=== PATIENT | female | born 1945 | race Caucasian/White ===

== ENCOUNTER 2023-04-25 17:12 | Emergency (ER) | payer MEDICARE, BC, SELFPAY ==
[2023-04-25 17:28] VITALS: BP 177/79; PULSE 92; RESP 20; TEMP 36.8; O2SAT 100; BMI 26.5
--- NOTE | 2023-04-25 17:32 | CRLHL7_ITS ---
For Patients: As a result of the Cures Act, medical imaging exams and procedure reports are released immediately into your electronic medical record. You may view this report before your referring provider. If you have questions, please contact your health care provider. INDICATION: Fall TECHNIQUE: Three views left shoulder FINDINGS: Normal alignment. No acute fractures or acute osseous abnormalities. High-riding left humerus AC arthrosis. Glenohumeral articulation intact IMPRESSION: No acute fracture. Dictated by Candida Hinds MD @ 04/25/2023 6:38:51 PM (Electronically Signed)
--- NOTE | 2023-04-25 17:32 | CRLHL7_ITS ---
For Patients: As a result of the Cures Act, medical imaging exams and procedure reports are released immediately into your electronic medical record. You may view this report before your referring provider. If you have questions, please contact your health care provider. Indication: Fall onto left wrist Comparison: None available. Technique: AP, lateral, and oblique views left wrist were obtained. Findings: There is subtle trabecular compaction of the distal radius likely representing a nondisplaced impaction fracture. Degenerative changes of the radiocarpal joint are appreciated. There is mild carpal soft tissue swelling. Impression: Subtle trabecular compaction of the distal radius which likely represented nondisplaced impaction fracture. Mild soft tissue swelling. Dictated by Nelson Antonio MD @ 04/25/2023 6:43:37 PM (Electronically Signed)
--- NOTE | 2023-04-25 17:36 | ED_ITS ---
HPI - Fall General Time Seen by Provider: 17:37 Date Seen: 04/25/23 Chief Complaint: Fall/Minor Trauma Stated Complaint: Fell off ladder, L shoulder/wrist injuries Time Seen by Provider: 04/25/23 17:25 Source: patient and RN notes reviewed Mode of arrival: ambulatory Limitations: no limitations History of Present Illness HPI Narrative: Patient is a 77-year-old female coming into the ED of her own accord with complaint of left shoulder and left wrist pain. She was up on a short ladder, no higher than 4 ft, lost her balance and fell backwards, taking most of the impact on her left shoulder and arm. She does feel numbness tingling in the left hand but this is her baseline, has underlying multiple sclerosis. She is not having any difficulty breathing, no internal chest pain, no abdominal pain. She did not hit her head, no neck or back pain. She has her [id number] mother in the car, she did not want to come in. 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 Related Data Allergies Allergy/AdvReac Type Severity Reaction Status Date / Time contrast dye AdvReac Severe Anaphylaxis Uncoded 04/25/23 17:32 Review of Systems Status of ROS: Reports: 6 or more systems reviewed and unremarkable except as noted in History and below PFSH PFS Social History Smoking Status: Never smoker How often do you have a drink containing alcohol: never AUDIT-C Alcohol total score: 0 Non-prescribed substance use: denies use Exam Const: Vital Signs, click to edit/add: Vital Signs - 24 hr 04/25/23 17:28 Temperature 98.2 F Pulse Rate [Right Pulse Oximeter] 92 Respiratory Rate 20 Blood Pressure [Ri ght Upper Arm] 177/79 H Pulse Oximetry 100 Oxygen Delivery Me thod Room Air 77-year-old female is alert, interactive , seems uncomfortable, is holding her left arm next to her body, flexed at the elbow with arm across her chest, a pplying ice over the wrist area. Scalp/head are atraumatic, face atraumatic, able to speak in complete sentences. Sclera clear, extraocular muscles intact, pupils equal round reactive, conjugate gaze. Speech is normal, able to speak in complete sentences. No midline neck or back tenderness. No visible traumatic changes to the chest wall or back. Lungs are clear, good air entry, no wheezing or crackles. No tenderness over her clavicles. Does have tenderness over the upper humerus but I do not feel a dislocation of the shoulder on my examination. Left elbow is nontender on palpation but as you move down her arm, has pain generally over the distal wrist area. The wrist is cool as she has been applying ice, do still feel a good pulse. She is normal cap refill in her fingers, does feel numbness and tingling but this is reportedly her baseline from her MS. CV regular rate and rhythm, no murmur, normal S1 and S2. Abdomen is soft, non distended or tender. Ambulatory in the ED, no complaints of any right arm or lower extremity symptoms. Course Course ED Course: X-ray is already here, will start with left shoulder and left wrist imaging. Need to rule out underlying fractures. Consider further imaging or other interventions based on these results and her clinical picture as she is here. Reevaluation(s) Time of Reevaluation #1: 19:25 Reevaluation #1: Reviewed with patient that her shoulder x-ray is negative. Did offer CT of her shoulder she is having significant pain. We did discuss the possibility of possible rotator cuff pathology from the fall. I cannot do an MRI at this time. Her shoulder is actually painful, have recommended the CT but she will not wait to have this done. She feels better in the sling. Did review that her wrist is fractured. Does not need any reduction, likely will be non operative. We will place a short-arm splint at this time. Vital Signs Vital signs: Initial Vital Signs Temperature 98.2 F 04/25/23 17:28 Temperature Source Temporal Artery Scan 04/25/23 17:28 Pulse Rate 92 04/25/23 17:28 Pulse Rhythm Regular 04/25/23 17:28 Pulse Strength 3+ Normal 04/25/23 17:28 Respiratory Rate 20 04/25/23 17:28 Blood Pressure 177/79 H 04/25/23 17:28 Blood Pressure Mean 111 H 04/25/23 17:28 Blood Pressure Position Sitting 04/25/23 17:28 Pulse Oximetry 100 04/25/23 17:28 Oxygen Delivery Method Room Air 04/25/23 17:28 Vital Signs Temperature 98.2 F 04/25/23 17:28 Pulse Rate 92 04/25/23 17:28 Respiratory Rate 20 10/08/23 17:28 Blood Pressure 177/79 H 04/25/23 17:28 Pulse Oximetry 100 04/25/23 17:28 Oxygen Delivery Method Room Air 04/25/23 17:28 Temperature 98.2 F 04/25/23 17:28 Pulse Rate 92 04/25/23 17:28 Respiratory Rate 20 04/25/23 17:28 Blood Pressure 177/79 H 04/25/23 17:28 Pulse Oximetry 100 04/25/23 17:28 Oxygen Delivery Method Room Air 04/25/23 17:28 Discharge Plan Discharge Clinical Impression: Fall, Fracture of left wrist, Acute pain of left shoulder Patient Disposition: Home, Self-Care Condition: Stable Instructions: Wrist Fracture in Adults (ED), Shoulder Pain (ED) Additional Instructions: Use ice on your shoulder and over the left wrist to help decrease pain and swelling. The splint material does need to stay dry on the wrist. Use sling for comfort. May want to place some pillows behind your left shoulder, try to sleep a bit more elevated for the time being. Tylenol per bottle directions. If your doctor allows you or states it is okay, can add in some ibuprofen. Please check with your primary care provider prior to using ibuprofen. Will need a follow-up for the wrist in about 7-10 days, contact the orthopedic clinic at [phone]. Otherwise, if you are not improving as far as her left shoulder, really do need further imaging done. There could be an occult fracture of the shoulder that was not seen on x-ray images, could be rotator cuff injury from the fall. More advanced imaging would need to be done if you are having ongoing symptoms of your shoulder. Activity Level: Activity as Tolerated Discharge Diet: Regular Stand Alone [facility] Info Instructions Procedures Orthopedic Splinting/Casting Injury #1: Side: left Upper Extremity Injury Location: wrist Upper extremity immobilizer: volar splint (Use Ortho Glass to do a dorsal- volar splint) Applied by clinician: / Conclusion: patient tolerated procedure
== END 2023-04-25 19:38 | disposition home or self-care (01) ==
PROVIDERS: Emergency Provider Family Medicine; PCP Surgery
DX: S52.502A Unspecified fracture of the lower end of left radius, initial encounter for closed fracture (principal); M25.512 Pain in left shoulder; W11.XXXA Fall on and from ladder, initial encounter
CPT/HCPCS: 29125; 73030; 73110; 99283; 99284

== ENCOUNTER 2023-05-15 17:17 | Emergency (ER) | payer MEDICARE, BC, SELFPAY ==
[2023-05-15 18:11] VITALS: BP 161/84; PULSE 69; RESP 16; TEMP 36.5; O2SAT 98; BMI 23.4
--- NOTE | 2023-05-15 18:20 | ED.GENADULT ---
HPI - General Adult General Date Seen: 05/15/23 Chief complaint: Extremity Pain/Injury, Upper Stated complaint: Rash/pain L arm Time Seen by Provider: 05/15/23 18:19 History of Present Illness HPI narrative: This is a pleasant 77-year-old female with a history of multiple sclerosis as well as recent fall with wrist fracture and rotator cuff tear. She was seen here in the ER and splinted and then had follow-up visit with Orthopedics and was resplinted for her wrist fracture. Two days ago, on she began to notice a painful, itchy vesicular rash affecting her left hand. She now has small erythematous macules with blisters on the hand including the thenar eminence, index finger, dorsum of the index finger, radial aspect of her forearm, on the lateral aspect of her distal humerus. She consulted a 1 of her friends was a retired physician and was told she probably had shingles. She came to the ER desiring re-evaluation and if it is shingles treatment with antivirals. She also has a history of MS but is not currently on any immune therapy. Related Data Home Medications Medication Instructions Recorded Confirmed levothyroxine 75 mcg tablet 75 mcg PO DAILY 05/04/23 05/04/23 Previous Rx's Medication Instructions Recorded valacyclovir 1 gram tablet 1,000 mg PO TID #21 tabs 05/15/23 (Valtrex) Allergies Allergy/AdvReac Type Severity Reaction Status Date / Time penicillin V Allergy Severe Verified 05/04/23 13:20 escitalopram Allergy Intermediate Rash Verified 05/04/23 13:20 Iodinated Contrast Media Allergy Anaphylaxis Verified 05/04/23 13:20 [facility] Medical History (Updated 05/15/23 @ 18:41 by Tc Radford MD) Multiple sclerosis ?G35 - Multiple sclerosis (ICD-10) Need for prophylactic vaccination and inoculation against rabies ?Z23 - Encounter for immunization (ICD-10) 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 Alert. Conversant. Non toxic. HENT: Head: Atraumatic. Nose: Nose normal. Mouth/Throat: Oral mucosa is clear and moist. Eyes: Conjunctivae normal. EOM normal. Pupils equal, round, and reactive to light. No scleral icterus. Neck: Normal range of motion. Neck supple. No tracheal deviation present. Cardiovascular: Skin pink, warm, well perfused with normal cap refill. Pulmonary/Chest: Effort normal. No stridor. No respiratory distress. Musculoskeletal: RUE: Normal range of motion. No tenderness. No deformity LUE: Normal range of motion in shoulder and elbow. Splint on left forearm.. No tenderness. No deformity RLE: Normal range of motion. No edema. No tenderness. No deformity LLE: Normal range of motion. No edema. No tenderness. No deformity Lymph: No cervical adenopathy. Neurological: Alert and oriented to person, place, and time. Normal strength. CN II-VII intact. No sensory deficit. GCS eye subscore is 4. GCS verbal subscore is 5. GCS motor subscore is 6. Normal coordination Skin: She has a fascicular slightly erythematous rash affecting her left hand, forearm, and left distal upper arm suggestive of shingles. It appears to affect the left C6 dermatome. Skin is warm and dry. No rash noted. No pallor. Normal capillary refill. Psychiatric: Normal mood. Normal affect. Const: Vital Signs, click to edit/add: Vital Signs - 24 hr 05/15/23 18:11 Temperature 97.7 F Pulse Rate [Pulse Oximeter] 69 Respiratory Rate 16 Blood Pressure [Ri ght Upper Arm] 161/84 H Pulse Oximetry 98 Oxygen Delivery Me thod Room Air Course Vital Signs Vital signs: Initial Vital Signs Temperature 97.7 F 05/15/23 18:11 Temperature Source Temporal Artery Scan 05/15/23 18:11 Pulse Rate 69 05/15/23 18:11 Respiratory Rate 16 05/15/23 18:11 Blood Pressure 161/84 H 05/15/23 18:11 Blood Pressure Mean 109 H 05/15/23 18:11 Pulse Oximetry 98 05/15/23 18:11 Oxygen Delivery Method Room Air 05/15/23 18:11 Vital Signs Temperature 97.7 F 05/15/23 18:11 Pulse Rate 69 05/15/23 18:11 Respiratory Rate 16 05/15/23 18:11 Blood Pressure 161/84 H 05/15/23 18:11 Pulse Oximetry 98 05/15/23 18:11 Oxygen Delivery Method Room Air 05/15/23 18:11 Temperature 97.7 F 05/15/23 18:11 Pulse Rate 69 05/15/23 18:11 Respiratory Rate 16 05/15/23 18:11 Blood Pressure 161/84 H 05/15/23 18:11 Pulse Oximetry 98 05/15/23 18:11 Oxygen Delivery Method Room Air 05/15/23 18:11 Medical Decision Making MDM Narrative Medical decision making narrative: MDM This patient presents for evaluation of pain and rash on her left hand and forearm. This is consistent clinically with herpes zoster, involving the left C6 dermatome. Will start valacyclovir for this and pain medicine as noted above. No signs at this point of disseminated zoster nor V1/eye involvement. Patient has a history of MS but is not currently immunocompromised and I see no signs of systemic illness that might have lead to this. She did recently fracture left forearm and I wonder if that injury might have been the provoking factor that triggered the shingles. I don't think lab work to look for things like HIV or leukemia is indicated. See primary care doctor in follow up for recheck and refill of pain medicine if needed. Discharge Plan Discharge Clinical Impression: Shingles Patient Disposition: Home, Self-Care Condition: Stable Instructions: Shingles (ED) Additional Instructions: As we discussed, please use the antiviral still try to get this shingles to heal up more quickly. See your doctor right away or come back to the ER immediately if you have spreading rash, high fever, worsening pain, or if you have blisters affecting other parts of your body Prescriptions: New valacyclovir [Valtrex] 1 gram tablet 1,000 mg PO TID Qty: 21 0RF No Action levothyroxine 75 mcg tablet 75 mcg PO DAILY Follow Up/Referrals: Isaac Khan MD [Primary Care Provider] - Stand Alone Forms: [employer] Info Instructions
[2023-05-15] MEDS: VALACYCLOVIR HCL 500 MG TABLET 1000 MG PO (19:16)
== END 2023-05-15 20:37 | disposition home or self-care (01) ==
LOC: ED 18:49
PROVIDERS: Emergency Provider Emergency Medicine; PCP Surgery
DX: B02.9 Zoster without complications (principal)
CPT/HCPCS: 99283; A9270

== ENCOUNTER 2023-05-16 09:11 | Emergency (ER) | payer MEDICARE, BC, SELFPAY ==
[2023-05-16 09:22] VITALS: BP 152/72; PULSE 60; RESP 17; TEMP 36.3; O2SAT 99; BMI 23.4
--- NOTE | 2023-05-16 09:49 | ED.GENADULT ---
HPI - General Adult General Chief complaint: Extremity Pain/Injury, Upper Stated complaint: Possible infection in arm/hand Time Seen by Provider: 05/16/23 09:17 Source: patient Mode of arrival: ambulatory Limitations: no limitations History of Present Illness HPI narrative: 77-year-old female presenting today with concerns about arm pain. She was seen in the ER yesterday and diagnosed with shingles. Today she states that her fingers were swollen and she had increased pain along her arm, she is wondering if she has an infection. She denies any new systemic symptoms. States that she is unsure if she has new vesicles. Related Data Home Medications Medication Instructions Recorded Confirmed levothyroxine 75 mcg tablet 75 mcg PO DAILY 05/04/23 05/04/23 Previous Rx's Medication Instructions Recorded valacyclovir 1 gram tablet 1,000 mg PO TID #21 tabs 05/15/23 (Valtrex) Allergies Allergy/AdvReac Type Severity Reaction Status Date / Time penicillin V Allergy Severe Verified 05/04/23 13:20 escitalopram Allergy Intermediate Rash Verified 05/04/23 13:20 Iodinated Contrast Media Allergy Anaphylaxis Verified 05/04/23 13:20 Review of Systems Status of ROS: Reports: 10 or more systems reviewed and unremarkable except as noted in History and below [facility] Medical History Multiple sclerosis ?G35 - Multiple sclerosis (ICD-10) Need for prophylactic vaccination and inoculation against rabies ?Z23 - Encounter for immunization (ICD-10) 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 Alert and oriented. Answers questions appropriately. Mood and affect are appropriate. Thoughts are goal oriented and rational. No tangential or magical thinking noted. Patient speaks in full sentences without needing to catch her breath. HEENT: Normocephalic atraumatic. Pupils are equally round reactive to light. Extraocular muscles are intact. Conjunctivae are moist without any icterus noted. Moist mucous membranes. Skin: Patient has vesicles of the left forearm and thumb 2nd and 3rd digits. Vesicles are lateral to the midline of the palm do not cross the midline. She has some vesicles going up the lower arm into the upper arm. No evidence of superimposed infection. Const: Vital Signs, click to edit/add: Vital Signs - 24 hr 05/16/23 09:22 Temperature 97.4 F L Pulse Rate [Pulse Oximeter] 60 Respiratory Rate 17 Blood Pressure [Ri t Upper Arm] 152/72 H Pulse Oximetry 99 Oxygen Delivery Me thod Room Air Course Course ED Course: Patient is a fracture of that arm, there for her splint and dressings were all removed arm was evaluated and the arm was resplinted and dressed. Vital Signs Vital signs: Initial Vital Signs Temperature 97.4 F L 05/16/23 09:22 Temperature Source Temporal Artery Scan 05/16/23 09:22 Pulse Rate 60 05/16/23 09:22 Respiratory Rate 17 05/16/23 09:22 Blood Pressure 152/72 H 05/16/23 09:22 Blood Pressure Mean 98 05/16/23 09:22 Pulse Oximetry 99 05/16/23 09:22 Oxygen Delivery Method Room Air 05/16/23 09:22 Vital Signs Temperature 97.4 F L 05/16/23 09:22 Pulse Rate 60 05/16/23 09:22 Respiratory Rate 17 05/16/23 09:22 Blood Pressure 152/72 H 05/16/23 09:22 Pulse Oximetry 99 05/16/23 09:22 Oxygen Delivery Method Room Air 05/16/23 09:22 Temperature 97.4 F L 05/16/23 09:22 Pulse Rate 60 05/16/23 09:22 Respiratory Rate 17 05/16/23 09:22 Blood Pressure 152/72 H 05/16/23 09:22 Pulse Oximetry 99 05/16/23 09:22 Oxygen Delivery Method Room Air 05/16/23 09:22 Medical Decision Making MDM Narrative Medical decision making narrative: 77-year-old female with shingles. We discussed this is the normal course. We discussed what to expect over the next several days. Patient does not wish to have any stronger pain medications at this time. Discharge Plan Discharge Clinical Impression: Shingles Patient Disposition: Home, Self-Care Condition: Stable Additional Instructions: You have classic appearing shingles. There is no evidence of other infection at this time. For itching you can try calamine lotion or Benadryl cream- both can be purchased [id number]. Continue your antiviral medications. Follow-up with your doctor as needed. Prescriptions: No Action levothyroxine 75 mcg tablet 75 mcg PO DAILY valacyclovir [Valtrex] 1 gram tablet 1,000 mg PO TID Qty: 21 0RF Follow Up/Referrals: Isaac Khan MD [Primary Care Provider] - Stand Alone Forms: [employer] Info Instructions
== END 2023-05-16 10:06 | disposition home or self-care (01) ==
PROVIDERS: Emergency Provider Family Medicine; PCP Surgery
DX: B02.9 Zoster without complications (principal)
CPT/HCPCS: 99283; 99284

== ENCOUNTER 2023-09-08 14:30 | Outpatient (RCR) | payer MEDICARE, BC, SELFPAY | END 2023-11-24 09:37 | disposition home or self-care (01) | PROVIDERS: PCP Surgery; Visit Provider Physician Assistant Surgical | DX: S62.102A Fracture of unspecified carpal bone, left wrist, initial encounter for closed fracture (principal); Z51.89 Encounter for other specified aftercare | CPT/HCPCS: 97110; 97140; 97165; X5282 ==

== ENCOUNTER 2024-01-24 12:30 | Outpatient (RCR) | payer MEDICARE, BC, SELFPAY | END 2024-05-23 23:59 | disposition home or self-care (01) | PROVIDERS: PCP Surgery; Visit Provider Surgery | DX: S62.102G Fracture of unspecified carpal bone, left wrist, subsequent encounter for fracture with delayed healing (principal); M25.532 Pain in left wrist; Z51.89 Encounter for other specified aftercare | CPT/HCPCS: 97035; 97110; 97140; 97165; 97535; X5282 ==

== ENCOUNTER 2024-02-12 15:43 | Emergency (ER) | payer MEDICARE, BC, SELFPAY ==
[2024-02-12 15:56] VITALS: BP 145/79; PULSE 60; RESP 18; TEMP 36.4; O2SAT 95; BMI 22.3
--- NOTE | 2024-02-12 16:21 | ED_ITS ---
HPI - General Adult General Date Seen: 02/12/24 Chief complaint: Weakness Stated complaint: Covid+, aching, fever Time Seen by Provider: 02/12/24 16:19 History of Present Illness HPI narrative: [age] year old female presents to the ER today with her [id number] mother. The patient lives at home with her mother and other family members. Her brother, who lives in [place], recently traveled to visit them. He did not know he was sick at the time he traveled but after arriving developed URI symptoms and subsequently tested positive for COVID. Since then the patient's niece also tested positive for COVID. Two days ago her sister tested positive for COVID. She developed symptoms yesterday of fever and chills, body aches, fatigue, cough. She is positive for coronavirus (tested yesterday). She is feeling dizziness, weakness, and has body aches. She had a fever yesterday. Today her mother also tested positive for COVID. She presents to the ER today with concern for early COVID and wants to get started on Paxlovid. She has had the initial series of COVID vaccines and had a booster last year. Risk factors for severe illness would include age greater than 65, history of MS Related Data Home Medications ?Medication ?Instructions ?Recorded ?Confirmed levothyroxine 75 mcg tablet 75 mcg PO DAILY 05/04/23 02/12/24 cholecalciferol (vitamin D3) 25 25 mcg PO QDAY 10/26/23 02/12/24 mcg (1,000 unit) capsule (Vitamin D3) Previous Rx's ?Medication ?Instructions ?Recorded nirmatrelvir 300 mg (150 mg See Rx Instructions PO .COMPLEX 02/12/24 x2)-ritonavir 100 mg tablet,dose #30 ea pack (Paxlovid) nirmatrelvir 300 mg (150 mg See Rx Instructions PO .COMPLEX 02/12/24 x2)-ritonavir 100 mg tablet,dose #30 ea pack (Paxlovid) Allergies Allergy/AdvReac Type Severity Reaction Status Date / Time penicillin V Allergy Severe Verified 02/12/24 16:01 escitalopram Allergy Intermediate Rash Verified 02/12/24 16:01 Iodinated Contrast Media Allergy Anaphylaxis Verified 02/12/24 16:01 [facility] Medical History Multiple sclerosis ?G35 - Multiple sclerosis (ICD-10) Need for prophylactic vaccination and inoculation against rabies ?Z23 - Encounter for immunization (ICD-10) 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, unspecified lower limb (ICD-10) DDD (degenerative disc disease) Family History Daughter Lupus Sister Diabetes Mother Endometrial cancer Social History (Reviewed 10/26/23 @ 14:53 by Stacie Almanza ~ [facility]) Smoking Status: Never smoker Do you use any of these nicotine containing products: None How often do you have a drink containing alcohol: never How often do you have six or more drinks on one occasion: Never AUDIT-C Alcohol total score: 0 Non-prescribed substance use: denies use Exam Narrative: Exam Narrative: Constitutional: Appears well-developed and well-nourished. Alert. Conversant. Non toxic. Very polite. HENT: Head: Atraumatic. Nose: Nose normal. Mouth/Throat: Oral mucosa is clear and moist. no trismus. Wearing face mask during exam. No pharyngeal exam performed. She does not have a sore throat. Eyes: Conjunctivae normal. EOM normal. Pupils equal, round, and reactive to light. No scleral icterus. Neck: Normal range of motion. Neck supple. No tracheal deviation present. No JVD Cardiovascular: Normal rate, regular rhythm. No gallop. No friction rub. No murmur heard. Pulmonary/Chest: Effort normal. No stridor. No respiratory distress. No wheezes. No rales. No rhonchi . No tenderness. Musculoskeletal: RUE: Normal range of motion. No tenderness. No deformity LUE: Normal range of motion. No tenderness. No deformity RLE: Normal range of motion. No edema. No tenderness. No deformity LLE: Normal range of motion. No edema. No tenderness. No deformity Neurological: Alert and oriented to person, place, and time. Normal strength. CN II-VII intact. No sensory deficit. GCS eye subscore is 4. GCS verbal subscore is 5. GCS motor subscore is 6. Normal coordination Skin: Skin is warm and dry. No rash noted. No pallor. Normal capillary refill. Psychiatric: Normal mood. Normal affect. Const: Vital Signs, click to edit/add: Vital Signs - 24 hr 02/12/24 15:56 Temperature 97.5 F L Pulse Rate [Right Pulse Oximeter] 60 Respiratory Rate 18 Blood Pressure [Ri ght Upper Arm] 145/79 H Pulse Oximetry 95 Oxygen Delivery Me thod Room Air Course Vital Signs Vital signs: Initial Vital Signs Temperature 97.5 F L 02/12/24 15:56 Temperature Source Temporal Artery Scan 02/12/24 15:56 Pulse Rate 60 02/12/24 15:56 Pulse Rhythm Regular 02/12/24 15:56 Respiratory Rate 18 02/12/24 15:56 Blood Pressure 145/79 H 02/12/24 15:56 Blood Pressure Mean 101 02/12/24 15:56 Blood Pressure Position Sitting 02/12/24 15:56 Pulse Oximetry 95 02/12/24 15:56 Oxygen Delivery Method Room Air 02/12/24 15:56 Vital Signs Temperature 97.5 F L 02/12/24 15:56 Pulse Rate 60 02/12/24 15:56 Respiratory Rate 18 02/12/24 15:56 Blood Pressure 145/79 H 02/12/24 15:56 Pulse Oximetry 95 02/12/24 15:56 Oxygen Delivery Method Room Air 02/12/24 15:56 Temperature 97.5 F L 02/12/24 15:56 Pulse Rate 60 02/12/24 15:56 Respiratory Rate 18 02/12/24 15:56 Blood Pressure 145/79 H 02/12/24 15:56 Pulse Oximetry 95 02/12/24 15:56 Oxygen Delivery Method Room Air 02/12/24 15:56 Medical Decision Making MDM Narrative Medical decision making narrative: This patient presents for evaluation of, fatigue, body aches, low-grade fever with positive home coronavirus test. She has known exposure to family members with COVID. She is positive for COVID and symptoms are consistent with an upper respiratory tract infection. There is no signs at this point of serious bacterial infection such as OM, RPA, epiglottitis, [employer]CHING [employer] O[employer], strep pharyngitis, pneumonia, sinusitis, meningitis, bacteremia, serious bacterial infection. Given clear lungs, fever curve, no hypoxia and no respiratory distress I do not feel a CXR is indicated at this point as the probability of bacterial pneumonia is very unlikely. There are no gastrointestinal symptoms at this point and no signs of dehydration. She has a good appetite. Given age and MS she does have risk for developing serious illness. I do think she is a good candidate for Paxlovid. She is on day 2 of coronavirus. GFR is normal. CBC reassuring. Prescription for Paxlovid sent to her pharmacy (initially to [facility], but they were closed. Subsequently to [facility]) . discussed the risk of worsening illness and the potential for developing hypoxia or symptoms requiring hospitalization.. Close followup with primary care physician is indicated. Return to ED for high fever, worsening shortness of breath, low oxygen levels, weakness, dehydration, protracted vomiting, confusion, or other worsening. Lab Data Labs: Lab Results 02/12/24 Range/Units 17:29 WBC 4.80 (4.50-11.00) K/uL RBC 4.51 (4.00-5.20) m/uL Hgb 13.7 (12.0-16.0) gm/dL Hct 42.9 (33.0-51.0) % MCV 95 (80-100) fL MCH 30 (26-34) pg MCHC 32 (32-36) gm/dL RDW Coeff of Man 13.6 (11.5-15.5) % Plt Count 215 (140-440) K/uL Neut % (Auto) 51.9 (42.0-72.0) % Lymph % (Auto) 32.7 (20-44) % Schuyler % (Auto) 14.4 H (0.0-11.0) % Eos % (Auto) 0.2 (0.0-7.0) % Baso % (Auto) 0.6 (0.0-3.0) % Neut # (Auto) 2.49 (1.7-7.0) K/uL Lymph # (Auto) 1.57 (0.90-2.90) K/uL Schuyler # (Auto) 0.70 (0.00-0.90) K/UL Eos # (Auto) 0.01 (0.00-0.50) K/uL Baso # (Auto) 0.03 (0.00-0.30) K/uL Abs Immat Gran (auto) 0.01 (0.00-0.30) K/uL Imm/Tot Granulo (auto) 0.2 % Sodium 137 (135-149) mmol/L Potassium 3.8 (3.6-5.1) mmol/L Chloride 103 (96-114) mmol/L Carbon Dioxide 26 (20-32) mmol/L Anion Gap 8 (7-15) mEq/L BUN 15 (7-30) mg/dL Creatinine 0.6 (0.5-1.5) mg/dL Estimated Creat Clear 37.26 Estimated GFR 92 ml/min Glucose 83 (60-115) mg/dL Calcium 9.0 (8.4-10.6) mg/dL Discharge Plan Discharge Clinical Impression: COVID-19 Patient Disposition: Home, Self-Care Condition: Stable Instructions: COVID-19 (Coronavirus Disease 2019) (ED), COVID-19 and Chronic Health Conditions (ED) Prescriptions: New Paxlovid 300 mg (150 mg x 2)-100 mg tablets,dose pack See Rx Instructions .ROUTE .COMPLEX Qty: 30 0RF Rx Instructions: take TWO 150 mg tablets of nirmatrelvir with ONE 100 mg tablet of ritonavir twice daily for 5 days Paxlovid 300 mg (150 mg x 2)-100 mg tablets,dose pack See Rx Instructions .ROUTE .COMPLEX Qty: 30 0RF Rx Instructions: take TWO 150 mg tablets of nirmatrelvir with ONE 100 mg tablet of ritonavir twice daily for 5 days No Action cholecalciferol (vitamin D3) [Vitamin D3] 25 mcg (1,000 unit) capsule 25 mcg PO QDAY levothyroxine 75 mcg tablet 75 mcg PO DAILY Follow Up/Referrals: Isaac Khan MD [Primary Care Provider] - Stand Alone [facility]: [facility]
[2024-02-12 18:20] LABS: Basophils Absolute Auto 0.03 K/uL (0.00-0.30); Basophils Percent Auto 0.6 % (0.0-3.0); Eosinophils Absolute Auto 0.01 K/uL (0.00-0.50); Eosinophils Percent Auto 0.2 % (0.0-7.0); Hematocrit 42.9 % (33.0-51.0); Hemoglobin* 13.7 gm/dL (12.0-16.0); Immature Granulocytes Abs Auto 0.01 K/uL (0.00-0.30); Immature Granulocytes Pct Auto 0.2 %; Lymphocytes Absolute Auto 1.57 K/uL (0.90-2.90); Lymphocytes Percent Auto 32.7 % (20-44); Mean Corpuscular HGB Conc 32 gm/dL (32-36); Mean Corpuscular Hemoglobin 30 pg (26-34); Mean Corpuscular Volume 95 fL (80-100); Monocytes Percent Auto 14.4 % (0.0-11.0); Neutrophils Absolute Auto 2.49 K/uL (1.7-7.0); Neutrophils Percent Auto 51.9 % (42.0-72.0); Platelet Count* 215 K/uL (140-440); RDW Coefficient of Variation % 13.6 % (11.5-15.5); Red Blood Count 4.51 m/uL (4.00-5.20)
[2024-02-12 18:29] LABS: Slide Review Reflex No
[2024-02-12 18:32] LABS: Chloride* 103 mmol/L (96-114); Sodium* 137 mmol/L (135-149)
[2024-02-12 18:33] LABS: Potassium* 3.8 mmol/L (3.6-5.1)
[2024-02-12 18:35] LABS: Anion Gap 8 mEq/L (7-15); Carbon Dioxide* 26 mmol/L (20-32); Creatinine* 0.6 mg/dL (0.5-1.5); Est. Creatinine Clearance* 37.26; Estimated Glomerular Filt Rate 92 ml/min
[2024-02-12 18:36] LABS: Blood Urea Nitrogen* 15 mg/dL (7-30); Glucose* 83 mg/dL (60-115)
== END 2024-02-12 19:02 | disposition home or self-care (01) ==
LOC: ED 18:50
PROVIDERS: Emergency Provider Emergency Medicine; PCP Surgery
DX: U07.1 COVID-19 (principal)
CPT/HCPCS: 36415; 80048; 85025; 99282; 99283

== ENCOUNTER 2025-04-15 21:01 | Emergency (ER) | payer MEDICARE, BC, SELFPAY ==
--- OUTSIDE RECORDS SUMMARY | 2025-04-15 21:02 | XMS_ITS | Clinical Summary ---
Author Organization [facility] Address [address] [place] [address] Care Team Providers Care Oceanologist Name Role Phone Juaquin Hein MB Unavailable [phone] Isaac Khan MD Primary Care Provider [phone] Allergies Active Allergy Reactions Criticality Noted Date Comments Codeine Other - Describe In Comment Field 07/28/2007 drugged feeling Iodinated Contrast Media 07/28/2007 Escitalopram Rash 07/28/2007 Penicillins Hives 07/28/2007 Medications desonide 0.05% (TRIDESILON 0.05% CREAM) 0.05 % creamIndications :Dermatitis Apply topically to affected area(s) 2 times daily. 15 g 2 1 Active cholecalciferol, Vitamin D3, (VITAMIN D3) 1,000 unit tablet Take 1 Tablet (1,000 units) by mouth once daily. 4 Active polyethylene glycol-electroly te (GOLYTELY) 236-22.74-6.74 -5.86 gram suspensionIndica tions:Encounter for screening colonoscopy Drink 2 liters the day before the procedure and 2 liters 6 hours prior to procedure. 4000 mL 4 Active levothyroxine (SYNTHROID) 75 mcg tabletIndication s:Hypothyroidism , unspecified type TAKE ONE TABLET BY MOUTH ONCE EVERY DAY . 90 Tablet 5 Active Active Problems Problem Noted Date Diagnosed Date Ennis's neuroma 04/20/2014 DDD (degenerative disc disease), lumbar 03/21/20 14 Facet arthritis of lumbar region 08/09/2013 Overview (08/09/2013): On XR at [place], 2013. Has slight thoracolumbar curve noted. Routine adult health maintenance 07/31/2013 Overview (07/31/2013): Colonoscopy 07/2013 normal biopsy, no follow up needed Osteopenia 02/01/2013 Unspecified hypothyroidism 07/28/2007 Multiple sclerosis 07/28/2007 Resolved Problems Problem Noted Date Diagnosed Date Resolved Date crohn's disease 07/28/2007 04/03/2013 Depressive disorder, not elsewhere classified 07/28/19 08 02/01/2013 Encounters Date Type Department Care Team Description 02/23/2025 Refill [facility] [address] [place] [address] Isaac Khan MD Refill Request (Levothyroxine) 02/14/2025 3:15 PM CDT Ancillary Procedure [facility] [address] [place] [address] 02/14/2025 2:30 PM CDT Ancillary Procedure [address] [place] [address] 02/14/2025 Travel 02/13/2025 Telephone [facility] [address] [place] [address] Isaac Khan MD Results (LYME SCREEN W/REFLEX) 02/09/2025 2:15 PM CDT Orders Only [address] [place] [address] Lab, [facility] 02/09/2025 Travel 02/03/2025 Telephone [facility] [address] [place] [address] Isaac Khan MD Imaging 02/02/2025 1:30 PM CDT Office Visit [facility] [address] [place] [address] Shanon hCung PA Breast Problem (Left breast is leaking fluid-has never had this issue) 02/01/2025 Travel 01/16/2025 Telephone [facility] [address] [place], [place] [id number] Isaac Khan MD Follow Up from Last 3 Months Immunizations Immunization Administration Dates Next Due COVID-19 vaccine (Moderna 100mcg/0.5mL) PFMDV 12/19/2020,11/13/2020 Rabavert 01/22/2021 01/25/2021 Rabies Vaccine 06/22/2018, 8,06/11/2018,06/08 Td, Preservative Free (age > = 7 Years) 07/28/2007 Tdap 01/22/2021,08/05/2011 Family History Medical History Relation Name Comments Allergies Daughter 1 Allergies Daughter 2 Other Daughter 3 lupus Alcohol/Drug Father Cancer-breast Maternal Aunt Heart Disease Mother Cancer-breast Other Maternal Cousin x3 Cancer-breast Sister Diabetes Sister Type I Allergies Son Cancer-ovarian No Family History Relation Name Status Comments Daughter 1 Daughter 2 Daughter 3 Father Maternal Aunt Mother Other Maternal Cousin Sister Son Social History Tobacco Use Types Packs/Day Years Used Date Smoking Tobacco: Never Smokeless Tobacco: Never Tobacco Cessation:Counseling Given: Yes Alcohol Use Standard Drinks/Week Comments No 0 (1 standard drink = 0.6 oz pur e alcohol) PHQ-2 Answer Date Recorded PHQ-2 TOTAL SCORE 0 11/23/2023 Social Connections Answer Date Recorded Do you often feel lonely or isolated from those around you? 0 12/19/2024 Financial Resource Strain Answer Date R ecorded Difficulty of Paying Living Expenses 3 12/19/2024 Difficulty of Paying Living Expenses Not on file 12/19/2024 Food Insecurity Answer Date Recorded Do you worry your food will run out before you are able to buy more? 1 12/19/2024 Transportation Needs Answer Date Record ed Does lack of transportation keep you from medica l appointments? 1 12/19/2024 Does lack of transportation keep you from work, meetings or getting things that you need? 1 12/19/2024 Housing Stability Answer Date Recorded What is your housing situation today? 1 12/19/2024 Utilities Answer Date Recorded Do you have trouble paying f or utilities (for example, heat, electricity, water, phone)? 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 Oxygen Saturation 96% 02/02/2025 1:48 PM CDT Inhaled Oxygen Concentration - - Weight 59 kg (130 lb) 02/02/2025 1:48 PM CDT Height 153.4 cm (5' 0.39) 11/23/2023 2:10 PM CD T Body Mass Index 25.06 11/23/2023 2:10 PM CDT Plan of Treatment Health Maintenance Due Date Last Done Comments Pneumococcal series for age 50+ (1 of 1 - PCV) 1996 Zoster (shingles) series for age 50+ (1 of 2) 1996 RSV vaccine for adults or (1 - 1-dose 75+ series) 2021 BMI (ht and wt on same day) for age 18+ 11/22/2024 11/23/2023, 09/01/2021, 02/04/2021, Additional history exists Depression screening for age 12+ 11/22/2024 11/23/2023, 11/23/2023, 09/02/2021, Additional history exists Medicare Wellness for age 65+ 11/23/2024 11/23/2023, 09/01/2021, 02/24/2019, Additional history exists COVID-19 vaccine series ( season) 2025 06/03/2022, 08/05/2021, 12/19/2020, Additional history exists Influenza Vaccine (#1) 2025 Tetanus booster 01/22/2031 01/22/2021, 07/19, 07/28/2007 DEXA/DXA scan for age 65+ Completed 04/18/2013, Hepatitis C screening for age 18-79 Completed 02/24/2019 Hepatitis B series for 19+ Aged Out N o longer eligible based on patient's age to complete this topic Procedures Procedure Name Priority Date/Time Associated Diagnosis Comments US BREAST UNILATERAL LEFT LIMITED PREM 02/14/2025 3:09 PM CDT Bloody discharge from left nipple XR MAMMO HERIBERTO BILAT DIAG PREM 02/14/2025 2:57 PM CDT Bloody discharge from left nipple LYME SCREEN W/REFLEX Routine 02/09/2025 2:33 PM CDT Tick bite of right hip, initial encounter ANTI HCV Routine 02/24/2019 4:28 PM CDT Need for hepatitis C screening test XR DXA BONE DENSITY 2 SITES AXIAL Routine 04/18/2013 1:46 PM CDT Osteopenia from Last 3 Months or Most Recently Relevant to Health Maintenance Results * US BREAST UNILATERAL LEFT LIMITED (02/14/2025 3:09 PM CDT) Anatomical Region Laterality Modality BREASTS, Breast Left, Breast Right Left Ultrasound Narrative 02/14/2025 4:14 PM CDT For Patients: As a result of the Cures Act, medical imaging exams and procedure reports are released immediately into your electronic medical record. You may view this report before your referring provider. If you have questions, please contact your health care provider. LEFT BREAST ULTRASOUND, 02/14/2025 PLEASE SEE [id number] FOR DIGITAL BILATERAL MAMMOGRAM SAME DAY. us Shanon RESENDEZ US Final Resu lt * XR MAMMO HERIBERTO BILAT DIAG (02/14/2025 2:57 PM CDT) Anatomical Region Laterality Modality BREASTS, Breast Left, Breast Right Bilateral Mammography 02/14/2025 3:16 PM CDT Impressions 02/14/2025 4:15 PM CDT 1. Nothing specific for malignancy in either breast and no change. 2. Ultrasound recommended for the episode of self-limited bloody nipple discharge. ULTRASOUND TECHNIQUE: Directed LEFT breast ultrasound with this radiologist present. FINDINGS: The LEFT breast was carefully scanned in the periareolar/retroareolar spaces. Only normal breast tissue was identified. No underlying mass. Few small lactiferous ducts deep to the nipple-areolar complex, within normal limits. No significant ductal dilatation or intraductal mass. These findings were discussed in detail with the patient. No further workup or follow-up is recommended at this time. Annual mammography is recommended. BI-RADS Category 1: Negative Dictated by: Hero Pandey MD @02/14/2025 3:16:41 PM/jyoti PATIENTS: You will also receive a letter with your examination results in an easy to read format. If you have questions about your results, please contact your referring provider. Narrative 02/14/2025 4:15 PM CDT For Patients: As a result of the Cures Act, medical imaging exams and procedure reports are released immediately into your electronic medical record. You may view this report before your referring provider. If you have questions, please contact your health care provider. DIGITAL DIAGNOSTIC BILATERAL MAMMOGRAM USING TOMOSYNTHESIS AND COMPUTER-AIDED DETECTION, 02/14/2025 LEFT BREAST ULTRASOUND, 02/14/2025 INDICATION: 79-year-old currently asymptomatic female. Possible trauma to the LEFT breast within the last 1-2 months. LEFT periareolar tenderness. Bloody nipple discharge potentially related to recent trauma, self-limiting, and no longer present. No palpable abnormality. MAMMOGRAM TECHNIQUE: CC and MLO views were obtained. This digital study was evaluated with the assistance of computer-aided detection. Digital breast tomosynthesis utilized interpretation. [facility]. FINDINGS: The breasts are heterogeneously dense which may obscure small masses. There are no dominant masses, suspicious microcalcifications or areas of architectural distortion. Specifically at deep to the LEFT nipple there is no convincing evidence for masses or ductal dilatation. Given the history of bloody nipple discharge in light of trauma, an ultrasound of the LEFT periareolar/retroareolar soft tissues will be performed. us Shanon RESENDEZ MAMMO Final Resu lt * LYME SCREEN W/REFLEX (02/09/2025 2:33 PM CDT) Pathologist [facility] [place] LYME AB, SCREEN < or = 0.90 index [facility], Comment: REFERENCE RANGE: < OR = 0.90 Index Index Interpretation < OR = 0.90 NEGATIVE 0.91 - 1.09 EQUIVOCAL > OR = 1.10 POSITIVE This assay measures Lyme Disease (Borrelia burgdorferi) IgG plus IgM antibodies; it does not distinguish results that are both IgG and IgM positive from results that are either IgG or IgM positive. As recommended by the Centers for Disease Control and Prevention (CDC), all samples with positive or equivocal results in this screening assay will be tested using separate supplemental Lyme IgG and IgM immunoassays. Positive or equivocal screening assay results should not be interpreted as truly positive until verified as such using the supplemental assays. Screening and/or supplemental tests for Lyme disease antibodies may be falsely negative in early stages of Lyme disease, including the period when erythema migrans is apparent. These assays may be falsely positive in patients with other spirochetal diseases (e.g., syphilis) or infectious mononucleosis. Blood BLOOD SPECIMEN / Unknown 02/09/2025 2:33 PM CDT 02/09/2025 2:33 PM CDT Isaac Khan MD SEND OUTS Final Resu lt [facility] [address] [place] [address], [facility] system/[facility], [address] [place] [address] * ANTI HCV (02/24/2019 4:28 PM CDT) Pathologist [facility] [place] HEPATITIS C ANTIBODY Non-React jim Non-React jim 02/25/2019 5:08 PM CDT [facility] Comment:Antibodies to HCV no t detected; does not exclude the possibility of exposure to HCV. Blood BLOOD SPECIMEN / Unknown Venipuncture / Unknown 02/24/2019 4:28 PM CDT 02/24/2019 4:28 PM CDT us Isaac Khan MD SEND OUTS Final Resu lt [facility] [address] [place] [address], [place] * (ABNORMAL) XR DXA BONE DENSITY 2 SITES (04/18/2013 1:46 PM CDT) Anatomical Region Laterality Modality Spine, HIPS, HIPL, HIPR Other Narrative 04/20/2013 9:17 AM CDT Please see scanned document for results of this study. Procedure Note Mohini Stack - 04/20/2013 Please see scanned document for results of this study. us Nasra RESENDEZ DEXA Final Resu lt from Last 3 Months or Most Recently Relevant to Health Maintenance Insurance BLUE [employer] [place] [employer] MR PB ONLY MEDICARE PART A HB ONLY [employer] [place] [employer] HB ONLY MEDICARE PART B HB ONLY [employer] WORK[employer] COMP Care Teams Oceanologist Relationship Specialty Start Date End Date Isaac Khan MD [place] [address] PCP - General Family Practice 02/02/19 Juaquin Hein MBBS [id number] [place] [id number] Neurology 08/15/15
[2025-04-15 21:23] VITALS: BP 163/74; PULSE 60; RESP 16; TEMP 37; O2SAT 97; BMI 23.8
--- NOTE | 2025-04-15 21:53 | ED_ITS ---
HPI - Fall General Time Seen by Provider: 21:53 Date Seen: 04/15/25 Chief Complaint: Fall/Minor Trauma Stated Complaint: fall/facial lac Time Seen by Provider: 04/15/25 21:52 Source: patient, RN notes reviewed and old records reviewed Mode of arrival: ambulatory Limitations: no limitations History of Present Illness HPI Narrative: 79-year-old female who comes in with family for trip and fall. Patient tripped on a curb today, fell and hit the right side of her face. No loss of consciousness. No jaw malocclusion, no loose teeth, no double vision. Has not taken anything for this. Denies any other injury, no neck pain, back pain, pain of the upper extremities. Related Data Home Medications ?Medication ?Instructions ?Recorded ?Confirmed levothyroxine 75 mcg tablet 75 mcg PO DAILY 05/04/23 0 02/12/24 cholecalciferol (vitamin D3) 25 25 mcg PO QDAY 4 02/12/24 mcg (1,000 unit) capsule (Vitamin D3) Previous Rx's ?Medication ?Instructions ?Recorded nirmatrelvir 300 mg (150 mg See Rx Instructions PO .CO MPLEX 02/12/24 x2)-ritonavir 100 mg tablet,dose #30 ea pack (Paxlovid) nirmatrelvir 300 mg (150 mg See Rx Instructions PO .CO MPLEX 02/12/24 x2)-ritonavir 100 mg tablet,dose #30 ea pack (Paxlovid) Allergies Allergy/AdvReac Type Severity Reaction Status Date / Time penicillin V Allergy Severe Verified 02/12/24 16:01 escitalopram Allergy Intermediate Rash Verified 02/12/24 16:01 Iodinated Contrast Media Allergy Anaphylaxis Verified 02/12/24 16:01 [facility] Medical History Multiple sclerosis ?G35 - Multiple sclerosis (ICD-10) Need for prophylactic vaccination and inoculation against rabies ?Z23 - Encounter for immunization (ICD-10) 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, unspecified lower limb (ICD-10) DDD (degenerative disc disease) Family History Daughter Lupus Sister Diabetes Mother Endometrial cancer Social History (Reviewed 10/26/23 @ 14:53 by Stacie Almanza ~ [facility], [facility]) Smoking Status: Never smoker Do you use any of these nicotine containing products: None How often do you have a drink containing alcohol: never How often do you have six or more drinks on one occasion: Never AUDIT-C Alcohol total score: 0 Non-prescribed substance use: denies use service: No Exam Narrative: Exam Narrative: General: Well-developed and well-nourished, no acute distress Head: Atraumatic and normocephalic Eyes: Pupils are equal reactive, extraocular motions intact, conjunctiva clear ENT: External nose and ears are normal, posterior pharynx without erythema or exudate. No loose teeth or dental fractures, some swelling of the right side of the mandible Neck: No midline cervical tenderness, full spontaneous range of motion the neck, trachea midline, no adenopathy Heart: Regular rate and rhythm no murmurs or thrills Lungs: Clear to auscultation bilaterally without wheezes or crackles Abdomen: Soft, nontender, nondistended with active bowel sounds Musculoskeletal: No tenderness, deformity, or edema Neurologic: Awake, alert, and oriented x3, no gross focal neurologic deficits, cranial nerves intact as tested Psych: Mood and affect are appropriate Skin: No rashes Const: Vital Signs, click to edit/add: Vital Signs - 24 hr 04/15/25 21:23 Temperature 98.6 F Pulse Rate [Pulse Oximeter] 60 Respiratory Rate 16 Blood Pressure [Ri ght Upper Arm] 163/74 H Pulse Oximetry 97 Oxygen Delivery Me thod Room Air Course Course ED Course: Reviewed most recent primary care visit from 02/03/2020 patient was complaining nipple discharge, mammography recommended, at that time she also had a recent fall where she had landed her back and hit her head, no loss conscious and no imaging performed. Patient seen examined, presents today after tripping and falling, hit her jaw and right side of her face. Denies loss of consciousness, does have a slight right frontal headache, denies any other injury of the upper extremities, neck or back. On exam here, there is some swelling of the right mandible, no loose teeth and no dental fractures. Discussed plan for testing with CT scan of the head and face. Family and patient expressed some apprehension about radiation. Given patient's age, did not think this concern. We also discussed that x-ray would not be as accurate for showing facial fractures and would not show any intracranial injury. We discussed that MRI cannot be done and that CT scan is the preferred test for acute head and facial trauma. Reevaluation(s) Time of Reevaluation #1: 23:02 Reevaluation #1: Reviewed radiology interpretation of CT scan of the head face, negative for acute findings, stable for discharge Vital Signs Vital signs: Initial Vital Signs Temperature 98.6 F 04/15/25 21:23 Temperature Source Temporal Artery Scan 04/15/25 21:23 Pulse Rate 60 04/15/25 21:23 Respiratory Rate 16 04/15/25 21:23 Blood Pressure 163/74 H 04/15/25 21:23 Blood Pressure Mean 103 04/15/25 21:23 Blood Pressure Position Sitting 04/15/25 21:23 Pulse Oximetry 97 04/15/25 21:23 Oxygen Delivery Method Room Air 04/15/25 21:23 Vital Signs Temperature 98.6 F 04/15/25 21:23 Pulse Rate 60 04/15/25 21:23 Respiratory Rate 16 04/15/25 21:23 Blood Pressure 163/74 H 04/15/25 21:23 Pulse Oximetry 97 04/15/25 21:23 Oxygen Delivery Method Room Air 04/15/25 21:23 Temperature 98.6 F 04/15/25 21:23 Pulse Rate 60 04/15/25 21:23 Respiratory Rate 16 04/15/25 21:23 Blood Pressure 163/74 H 04/15/25 21:23 Pulse Oximetry 97 04/15/25 21:23 Oxygen Delivery Method Room Air 04/15/25 21:23 Medications Administered Medications: Generic Name Dose Route Start Last Admin Trade Name Freq PRN Reason Stop Dose Admin Acetaminophen 1,000 mg 04/15/25 22:06 04/15/25 22:10 Acetaminophen 500 Mg Tablet PO 04/15/25 22:07 500 mg ONCE ONE Administration Discontinued Medications Generic Name Dose Route Start Last Admin Trade Name Freq PRN Reason Stop Dose Admin Lidocaine/Epinephrine 20 ml 04/15/25 21:57 04/15/25 22:11 Lidocaine 1%-Epi 1:100,000 INFILTRATI 04/15/25 21:58 Not Given ONCE ONE Discharge Plan Discharge Clinical Impression: Contusion of jaw, Contusion of face Patient Disposition: Home, Self-Care Condition: Stable Instructions: Facial Contusion (ED) Additional Instructions: Tylenol and ibuprofen as needed for pain Cool packs 15-20 minutes at a time every 2-3 hours while awake for 24 hours Soft diet for 24 hours Activity Level: Activity as Tolerated Discharge Diet: Regular Prescriptions: No Action cholecalciferol (vitamin D3) [Vitamin D3] 25 mcg (1,000 unit) capsule 25 mcg PO QDAY levothyroxine 75 mcg tablet 75 mcg PO DAILY Paxlovid 300 mg (150 mg x 2)-100 mg tablets,dose pack See Rx Instructions .ROUTE .COMPLEX Qty: 30 0RF Rx Instructions: take TWO 150 mg tablets of nirmatrelvir with ONE 100 mg tablet of ritonavir twice daily for 5 days Paxlovid 300 mg (150 mg x 2)-100 mg tablets,dose pack See Rx Instructions .ROUTE .COMPLEX Qty: 30 0RF Rx Instructions: take TWO 150 mg tablets of nirmatrelvir with ONE 100 mg tablet of ritonavir twice daily for 5 days Follow Up/Referrals: Isaac Khan MD [Primary Care Provider, Family Practice] Stand Alone Forms: [employer] Info Instructions
--- NOTE | 2025-04-15 22:06 | CRLHL7_ITS ---
For Patients: As a result of the Century Cures Act, medical imaging exams and procedure reports are released immediately into your electronic medical record. You may view this report before your referring provider. If you have questions, please contact your health care provider. Indication: Fall, facial injury Technique: Noncontrast CT through the head with multiplanar reformats Comparison: None Findings: Brain: No acute hemorrhage. No acute infarct. No significant mass effect or midline shift. No gross evidence of a mass lesion or cerebral edema. Mild chronic white matter disease. Ventricles: No acute abnormality appreciated. Calvarium and soft tissues: No acute abnormality appreciated. Impression: No acute intracranial abnormality appreciated. Please note that all CT scans at this facility use dose modulation, iterative reconstruction, and/or weight-based dosing when appropriate to reduce radiation dose to as low as reasonably achievable. Dictated by Jefry Martini MD @ 04/15/2025 10:53:36 PM (Electronically Signed)
--- NOTE | 2025-04-15 22:06 | CRLHL7_ITS ---
For Patients: As a result of the Cures Act, medical imaging exams and procedure reports are released immediately into your electronic medical record. You may view this report before your referring provider. If you have questions, please contact your health care provider. Indication: Fall, right-sided facial injury Technique: CT through the maxillofacial structures with multiplanar reformats without contrast Comparison: MRI cervical spine performed 01/30/2016 Findings: Orbits: Periorbital tissues are unremarkable. Intraorbital tissues are unremarkable. No orbital fracture appreciated. Paranasal sinuses: No acute abnormality appreciated. Mastoid air cells: No significant abnormality appreciated. Maxilla: No acute fracture. Mandible: No acute fracture. Zygomatic arch, squamous temporal bone, and pterygoid plates: No acute fracture. Nasal bones: No acute fracture. Visualized cervical spine: No acute fracture appreciated. The dorsal epidural space at C1-2 appears abnormal with outpouching of CSF into the interspinous space. This is unchanged compared to 2016 MRI. Other: No other significant abnormality appreciated. Impression: No acute maxillofacial injury appreciated. Please note that all CT scans at this facility use dose modulation, iterative reconstruction, and/or weight-based dosing when appropriate to reduce radiation dose to as low as reasonably achievable. Dictated by Jefry Martini MD @ 04/15/2025 10:56:29 PM (Electronically Signed)
[2025-04-15] MEDS: ACETAMINOPHEN 500 MG TABLET 1000 MG PO (22:10)
== END 2025-04-15 23:21 | disposition home or self-care (01) ==
LOC: ED 22:34
PROVIDERS: Emergency Provider Family Medicine; PCP Surgery
DX: S00.83XA Contusion of other part of head, initial encounter (principal); W01.10XA Fall on same level from slipping, tripping and stumbling with subsequent striking against unspecified object, initial encounter
CPT/HCPCS: 70450; 70486; 99283; 99284; A9270